=== PATIENT | female | born 1995 | race Caucasian/White ===

== ENCOUNTER 2019-08-12 07:15 | Emergency (ER) | payer OTHER ==
[~2019-08-12] VITALS: Ht 157.5 cm; Wt 77.1 kg
[2019-08-12] MEDS ORDERED: [UNRECOGNIZED DRUG - CODE] (07:38)
[2019-08-12] MEDS ORDERED: ZITHROMAX500 MG PO (11:13)
[2019-08-12] MEDS ORDERED: KETO10TA2 PO (11:13)
== END 2019-08-12 11:28 | disposition home or self-care (01) ==
LOC: ER 07:15
DX: H92.01 Otalgia, right ear (principal)